=== PATIENT | male | born 1960 ===

== ENCOUNTER → 2018-07-07 21:02 | Outpatient (REF) | payer BC, SELFPAY ==
[2018-07-11 12:23] LABS: Draw Date 3 11519; Draw Date 4 11519; Draw Time 3 1330; Draw Time 3 1730
== END ==
LOC: LAB 21:02
PROVIDERS: Visit Provider Naturopath
DX: S06.9X9A Unspecified intracranial injury with loss of consciousness of unspecified duration, initial encounter (principal)
CPT/HCPCS: 82530